=== PATIENT | female | born 1985 | race Caucasian/White ===

== ENCOUNTER 2017-02-07 07:21 | Inpatient (IN) | payer OTHER ==
[~2017-02-07 07:21] MED LIST: PRENATAL PO
[2017-02-07] MEDS ORDERED: Methylergonovine 0.2 mg/mL Inj IM PRN ×2 (07:35→09:15)
[2017-02-07] MEDS ORDERED: OXYTOCIN IV PRN (07:40)
[2017-02-07] MEDS ORDERED: LACTATED RINGER S IV PRN (07:40)
[2017-02-07 07:46] LABS: Mean Corpuscular Volume 87.4 fL (81-100)
[2017-02-07] MEDS ORDERED: Lactated Ringer's 1,000 ML IV SCH (09:12)
[2017-02-07] MEDS ORDERED: Acetaminophen IV 1,000 MG in IV Premix 1 EACH IV PRN (09:15)
[2017-02-07] MEDS ORDERED: Witch Hazel-Glycerin Pads TOPICAL PRN (09:15)
[2017-02-07] MEDS ORDERED: LANOlin HPA 7 Gm Ointment TOPICAL PRN (09:15)
[2017-02-07] MEDS ORDERED: Hemorrhage Kit, Post Partum XX ONE (09:15)
[2017-02-07] MEDS ORDERED: Carboprost 250 mCg/mL Inj IM PRN (09:15)
[2017-02-07] MEDS ORDERED: Benzocaine (Dermoplast) 20% 60 Gm Spray TOPICAL PRN (09:15)
[2017-02-07] MEDS ORDERED: Oxytocin 10 Unit/mL Inj IM PRN (09:15)
--- NOTE | 2017-02-07 10:31 | HP ---
[address] [address] HISTORY AND PHYSICAL PATIENT: JENNY JEFFERY : 1985 MR#: [id number] ADMIT: 02/07/2017 JOB ID: [id number] CHIEF COMPLAINT: hemorrhage. HISTORY OF PRESENT ILLNESS: The patient is a 31-year-old, normally healthy, G2, P0 female, who delivered by normal vaginal delivery down at the [facility] in [facility] approximately 3 hours prior to her presentation to the [facility] here. She had had an uncomplicated delivery and an uncomplicated course. Her delivery was without major vaginal or perineal tearing. No cervical tearing was noted. Two hours after delivery, however, she had 900 cc of blood loss. This was due to a boggy uterus. The [facility] got the call for transfer and accepted. 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 The patient had not had bleeding issues in her life with other types of surgery or periods or bloody noses. She had received 800 of Cytotec down at the [facility] by the midwives. She had also received 10 units of Pitocin in her thigh. On my initial examination, the patient showed another 1000 cc of blood loss and clots that appeared to be sitting in the vagina. Otherwise, her vital signs had been relatively stable at the [facility] and on her initial arrival. Additional measures taken at the [facility] were to place another IV site and so, she had two IV sites on arrival. PAST MEDICAL HISTORY: Noncontributory. PAST SURGICAL HISTORY: 1. The patient had a septal deviation surgery in the remote past. 2. The patient had a prior D and C. OBSTETRICAL HISTORY: 1. Therapeutic D and C. 2. Normal vaginal delivery today. MEDICATIONS: vitamin. SOCIAL HISTORY: The patient is here with her partner and with her component engineer, and is not a smoker, drinker, or user of illicit substances. ALLERGIES: The patient gets itchy with HYDROCODONE. PHYSICAL EXAMINATION: Vital signs: Stable but the patient's blood pressure is normally low in the 80s/60s. The patient is afebrile. In general, she appears pale but is quite conversational, alert and oriented x3. She is shivering a bit in the phase. HEENT: Anicteric. Neck: Thyroid without masses. Chest: Clear to auscultation bilaterally. Heart: Slightly tachy at times into the 100s but then drops into a normal rate and rhythm. No murmur is auscultated. Abdomen: No hepatosplenomegaly. Soft, without pain. Her uterus is now firm. Genitourinary exam: No laceration of her cervix, and her perineal area is intact. There is a small laceration that is not bleeding of her vagina centrally. There is about 1000 cc of clot in her vagina that is now removed. Extremities: Normal pulses, normal reflexes bilaterally. LABORATORIES: The patient had a CBC ordered directly on arrival, and her hematocrit here is 31.2 with a platelet count of 214 and white blood count 25.6. This is likely a dehydrated and concentrated hematocrit. No other labs have been ordered. IMPRESSION: The patient has delivered in the last four hours by normal vaginal delivery, and has had a hemorrhage that places her total blood loss between 1.5 and 2 L. She is stable, and two IVs are placed. She has received Cytotec and Pitocin already but further agents will be needed. Her uterus is firm and holding its firmness, so I doubt that further dilatation and curettage will be needed to deal with membranes. She is otherwise healthy and so, additional transfusion, hopefully, will not be needed. PLAN: 1. Admit and maintain two IV sites. 2. Obtain CBC both now, which has been done, and in 6 hours. 3. Methergine will be given as well. Additional Pitocin in her IV fluids. 4. Once 3 L have been run in, we will continue IV fluids at 150 cc an hour. 5. We will place a [place] to monitor urine output in a meaningful way. 6. The patient will be only up with assist at this point but at some point prior discharge we will have to walk her to see if she can handle doing this on her own. 7. The patient will have routine medicine and nursing activity ordered. 8. I anticipate discharge home later this afternoon or evening if she is stable and has just normal bleeding without needing a transfusion.
--- NOTE | 2017-02-07 11:09 | NUR ---
Assisted with attempted latch. is sleepy. Mother has fairly flat nipples which cr slightly with stimulation. Drops of colostrum easily expressed bilaterally. does not latch and suck despite colostrum being rubbed on lips. Discussed normal feeding patterns and increased risk of low milk supply and or delayed milk onset related to excessive blood loss. Encouraged close follow up of infant. Encouraged mother to ask for help with latch if needed. Reminded that as infant is not a patient we will not be providing any care or monitoring for signs of effective feeding. [facility] should be called with concerns about infant. will follow up as needed.
[2017-02-07 13:43] LABS: BASOPHILS % (AUTO) 0 % (0-3); EOSINOPHILS % (AUTO) 0 % (0-5); MONOCYTES % (AUTO) 6.6 % (4-12); Mean Corpuscular Hemoglobin 29.5 pg (27.0-35.0); Mean Corpuscular Volume 87.7 fL (81-100); NEUTROPHILS % (AUTO) 85.4 % (40-74); Platelet Count 153 bil/L (150-400)
--- NOTE | 2017-02-07 17:20 | PCM.DC.OB ---
Obstetrical Discharge Summary Date of Service Feb 07, 2017 Date of hospital admission Feb 07, 2017 at 07:21 Date of Discharge: Feb 07, 2017 Providers Admitting Physician: Chet Smallwood MD Primary Care Physician: Chelsie Holley CNM Attending Physician: Chet Smallwood MD Problems: (1) hemorrhage Qualifiers: hemorrhage type: delayed hemorrhage Qualified Code: O72.2 - Delayed and secondary hemorrhage Status: Acute ICD Code: O72.1 Consultations Chet Smallwood MD Invasive procedures None Hospital Course: Patient presented for post hemorrhage. Had another major bleed while in hospital. Methergine and more pitocin given. Initial hct was 31 but the corrected hct 6 hours later was 22. She was able to adapt to lower blood count and did well off of valero cath and with mobilization. No pain meds needed. No transfusion given. Desired to be discharged home. ([ ]) 1 TAB PO TID (Reported) Discharge Diet: No restrictions Discharge Activity-General: Pelvic Rest for 6 weeks, Try not to overdue, Be up and about, Activity as energy allows, No lifting >15 pounds for 2 weeks Additional information Take iron 325 mg tabs twice a day. Take PNV daily. Call if fevers. copies to: Yin Fuentes ND, David B MD Feb 07, 2017 17:20
--- NOTE | 2017-02-07 17:25 | PCM.DIOB ---
Obstetrical Disch Instruction Date of Service: Feb 07, 2017 Dates of Hospitalization Date of Hospital Admission Feb 07, 2017 at 07:21 Providers Admitting Physician: Chet Smallwood MD Primary Care Physician: Chelsie Holley CNM Attending Physician: Chet Smallwood MD Discharge Diagnosis Problems: (1) hemorrhage Qualifiers: hemorrhage type: delayed hemorrhage Qualified Code: O72.2 - Delayed and secondary hemorrhage Status: Acute ICD Code: O72.1 Diet Discharge Diet: No restrictions Activity Discharge Activity-General: Pelvic Rest for 6 weeks, Try not to overdue, Be up and about, Activity as pain allows, Activity as energy allows, No lifting >15 pounds for 2 weeks Dressing and Incisional Care Hygiene: May shower, Perineal care, Sitz bath, Dermoplast spray, Witch Lindsay pads Follow Up Plan Follow-up Provider (F9): Chelsie Holley CNM Follow-up appointment: Days (2) Chet Smallwood MD Feb 07, 2017 17:25
[2017-02-07] MEDS ORDERED: Ascorbic Acid 500 mg Tablet PO SCH (17:30)
[2017-02-07 17:51] VITALS: BP 105/63; PULSE 101; RESP 16
== END 2017-02-07 19:07 | disposition home or self-care (01) | DRG 776 ==
LOC: FBC 07:21
PROVIDERS: ADMIT Family Medicine; ATTEND Family Medicine
DX: O72.2 Delayed and secondary postpartum hemorrhage (principal); N85.8 Other specified noninflammatory disorders of uterus